=== PATIENT | male | born 1985 | race Two or more races ===

== ENCOUNTER 2021-10-03 10:24 | Outpatient (CLI) | payer OTHER | END 2021-10-03 15:00 | disposition home or self-care (01) | LOC: LAB 10:24 | PROVIDERS: ATTEND General Practice | DX: Z11.3 Encounter for screening for infections with a predominantly sexual mode of transmission (principal); Z77.128 Contact with and (suspected) exposure to other hazards in the physical environment; Z20.89 Contact with and (suspected) exposure to other communicable diseases; Z20.6 Contact with and (suspected) exposure to human immunodeficiency virus [HIV]; Z72.51 High risk heterosexual behavior ==

== ENCOUNTER 2022-01-07 21:15 | Emergency (ER) | payer OTHER ==
[~2022-01-07] VITALS: Ht 177.8 cm; Wt 75.3 kg
== END 2022-01-08 01:57 ==
LOC: ER 21:15
DX: F15.229 Other stimulant dependence with intoxication, unspecified (principal); Z71.51 Drug abuse counseling and surveillance of drug abuser

== ENCOUNTER 2022-02-02 09:41 | Outpatient (CLI) | payer OTHER | END 2022-02-02 09:42 | disposition home or self-care (01) | LOC: LAB 09:41 | DX: Z20.6 Contact with and (suspected) exposure to human immunodeficiency virus [HIV] (principal); U07.1 COVID-19 ==

== ENCOUNTER → 2023-11-09 08:53 | Outpatient (CLI) | payer OTHER ==
[2023-11-09 12:07] LABS: PH,URINE 5.5 (5.0-8.0); URINE APPEARANCE Clear; URINE BILIRRUBIN Negative (NEGATIVE); URINE BLOOD Negative; URINE COLOR Yellow; URINE GLUCOSE Negative (NEGATIVE); URINE LEUKOCYTE Negative; URINE NITRATE Negative; URINE PROTEIN Negative (NEGATIVE); URINE UROBILINOGEN 0.2 E.U./dl
[2023-11-09 12:12] LABS: URINE WBC 3.8 uL (0.0-23.2)
[2023-11-09 12:26] LABS: URINE EPITHELIAL CELLS 1.2 uL (0.0-38.8); URINE RBC 1.4 uL (0.0-20.8)
== END | disposition home or self-care (01) ==
LOC: LAB 08:53
DX: N39.0 Urinary tract infection, site not specified (principal); R74.01 Elevation of levels of liver transaminase levels; R50.9 Fever, unspecified; Z11.3 Encounter for screening for infections with a predominantly sexual mode of transmission; Z11.4 Encounter for screening for human immunodeficiency virus [HIV]

== ENCOUNTER 2024-05-11 11:24 | Outpatient (CLI) | payer OTHER ==
[2024-05-11 12:22] LABS: URINE APPEARANCE Clear; URINE BILIRRUBIN Negative (NEGATIVE); URINE BLOOD Negative; URINE COLOR Yellow; URINE GLUCOSE Negative (NEGATIVE); URINE KETONE Negative (NEGATIVE); URINE LEUKOCYTE Negative; URINE NITRATE Negative; URINE PROTEIN Negative (NEGATIVE)
[2024-05-11 12:31] LABS: URINE BACTERIA 0 uL (0.0-1933); URINE EPITHELIAL CELLS 0.1 uL (0.0-38.8); URINE WBC 1.3 uL (0.0-23.2)
[2024-05-11 12:32] LABS: ALBUMIN 4.1 gm/dL (3.4-5.0); BILIRUBIN TOTAL 0.7 mg/dL (0.3-1.2); CALCIUM 9.1 mg/dL (8.5-10.1); CREATININE SERUM 0.75 mg/dL (0.70-1.30); GFR 116.55; POTASSIUM 4.05 mEq/L (3.5-5.1); TOTAL PROTEIN 7.1 gm/dL (6.4-8.2)
[2024-05-13 21:05] LABS: chla t Negative (Negative); neiss Negative (Negative)
== END 2024-05-11 11:33 | disposition home or self-care (01) ==
LOC: LAB 11:24
PROVIDERS: ATTEND General Practice
DX: R79.89 Other specified abnormal findings of blood chemistry (principal); Z11.3 Encounter for screening for infections with a predominantly sexual mode of transmission; Z13.9 Encounter for screening, unspecified; Z20.6 Contact with and (suspected) exposure to human immunodeficiency virus [HIV]; Z13.228 Encounter for screening for other metabolic disorders

== ENCOUNTER 2024-09-24 09:21 | Outpatient (CLI) | payer OTHER ==
[2024-09-24 10:03] LABS: PH,URINE 6.5 (5.0-8.0); URINE APPEARANCE Clear; URINE BILIRRUBIN Negative (NEGATIVE); URINE BLOOD Negative; URINE COLOR Yellow; URINE GLUCOSE Negative (NEGATIVE); URINE KETONE Negative (NEGATIVE); URINE LEUKOCYTE Negative; URINE NITRATE Negative; URINE PROTEIN Negative (NEGATIVE); URINE UROBILINOGEN 0.2 E.U./dl
[2024-09-24 11:32] LABS: URINE BACTERIA 0 uL (0.0-1933); URINE EPITHELIAL CELLS 0.4 uL (0.0-38.8); URINE RBC 0.4 uL (0.0-20.8); URINE WBC 0.1 uL (0.0-23.2)
[2024-09-24 11:40] LABS: BILIRUBIN TOTAL 0.79 mg/dL (0.3-1.2); CALCIUM 9.2 mg/dL (8.5-10.1); CREATININE SERUM 0.89 mg/dL (0.70-1.30); GFR 95.16; GLOBULINA 3.1 G/DL (2.4-3.5); POTASSIUM 4.48 mEq/L (3.5-5.1); TOTAL PROTEIN 7.1 gm/dL (6.4-8.2)
[2024-09-26 20:04] LABS: chla t Negative (Negative); neiss Negative (Negative)
== END 2024-09-24 09:22 | disposition home or self-care (01) ==
LOC: LAB 09:21
PROVIDERS: ATTEND General Practice
DX: Z11.3 Encounter for screening for infections with a predominantly sexual mode of transmission (principal); Z13.9 Encounter for screening, unspecified; Z20.6 Contact with and (suspected) exposure to human immunodeficiency virus [HIV]; Z20.5 Contact with and (suspected) exposure to viral hepatitis; R79.89 Other specified abnormal findings of blood chemistry; Z13.228 Encounter for screening for other metabolic disorders

== ENCOUNTER → 2024-12-08 10:36 | Outpatient (CLI) | payer OTHER ==
[2024-12-08 11:36] LABS: HEMATOCRIT 44.3 % (39.0-48.0); HEMOGLOBIN 14.6 g/dL (13-16.00); MEAN CELL VOLUME 94.2 fL (80.0-100.00); MEAN CORPUSCULAR HGB CONC 32.9 g/dl (32.0-36.0); PLATELET COUNT 185 K/uL (150-450); RED CELL DISTRIBUTION WIDTH 14.1 % (11.5-14.5)
[2024-12-08 11:58] LABS: PH,URINE 6.5 (5.0-8.0); URINE APPEARANCE Clear; URINE BILIRRUBIN Negative (NEGATIVE); URINE BLOOD Negative; URINE COLOR Yellow; URINE GLUCOSE Negative (NEGATIVE); URINE KETONE Negative (NEGATIVE); URINE LEUKOCYTE Negative; URINE NITRATE Negative; URINE PROTEIN Negative (NEGATIVE); URINE UROBILINOGEN 0.2 E.U./dl
[2024-12-08 12:02] LABS: URINE WBC 2.5 uL (0.0-23.2)
[2024-12-08 12:22] LABS: URINE BACTERIA 1.2 uL (0.0-1933); URINE RBC 0.8 uL (0.0-20.8)
[2024-12-08 12:23] LABS: ALBUMIN 3.8 gm/dL (3.4-5.0); BILIRUBIN TOTAL 0.99 mg/dL (0.3-1.2); CALCIUM 9.1 mg/dL (8.5-10.1); CHOL HDL RATIO 2.8 (0-5.0); CREATININE SERUM 0.79 mg/dL (0.70-1.30); GFR 109.19; GLOBULINA 3.2 G/DL (2.4-3.5); POTASSIUM 4.22 mEq/L (3.5-5.1); TSH 0.391 uIU/mL (0.358-3.74)
[2024-12-10 07:08] LABS: HEPATITIS A ANTIBODY IGG Negative (Negative); HEPATITIS B CORE IGG Negative (Negative); HEPATITIS B SURFACE ANTIBODY Non Reactive (.); HEPATITIS C VIRUS ANTIBODY Non Reactive (Non Reactive)
[2024-12-10 23:08] LABS: chla t Negative (Negative); neiss Negative (Negative)
== END | disposition home or self-care (01) ==
LOC: LAB 10:36
PROVIDERS: ATTEND General Practice
DX: R73.01 Impaired fasting glucose (principal); E78.2 Mixed hyperlipidemia; E55.9 Vitamin D deficiency, unspecified; Z13.1 Encounter for screening for diabetes mellitus; E03.9 Hypothyroidism, unspecified; Z11.3 Encounter for screening for infections with a predominantly sexual mode of transmission; Z13.9 Encounter for screening, unspecified; Z20.6 Contact with and (suspected) exposure to human immunodeficiency virus [HIV]; Z20.5 Contact with and (suspected) exposure to viral hepatitis; R79.89 Other specified abnormal findings of blood chemistry; Z13.228 Encounter for screening for other metabolic disorders

== ENCOUNTER 2025-08-18 14:05 | Outpatient (CLI) | payer OTHER ==
[2025-08-22 07:37] LABS: chla t Negative (Negative); neiss Negative (Negative)
== END 2025-08-18 14:11 | disposition home or self-care (01) ==
LOC: LAB 14:05
DX: R50.9 Fever, unspecified (principal); Z11.3 Encounter for screening for infections with a predominantly sexual mode of transmission; Z11.4 Encounter for screening for human immunodeficiency virus [HIV]; N39.0 Urinary tract infection, site not specified; R74.01 Elevation of levels of liver transaminase levels; Z79.2 Long term (current) use of antibiotics; Z11.59 Encounter for screening for other viral diseases; N91.0 Primary amenorrhea; Z20.2 Contact with and (suspected) exposure to infections with a predominantly sexual mode of transmission; Z20.6 Contact with and (suspected) exposure to human immunodeficiency virus [HIV]; Z20.5 Contact with and (suspected) exposure to viral hepatitis